=== PATIENT | male | born 1985 | race African-American/Black ===

== ENCOUNTER 2022-06-18 15:44 | Emergency (ER) | payer MEDICAID, OTHER ==
[~2022-06-18] VITALS: Ht 170.2 cm; Wt 78.0 kg
[~2022-06-18 15:44] MED LIST: KEPP500 PO
[2022-06-18 16:15] VITALS: BP 123/70
[2022-06-18] MEDS ORDERED: LEVE1000 MT (19:32)
[2022-06-18] MEDS ORDERED: LACO200T2 MT ×2 (19:32→19:40)
== END 2022-06-18 20:38 | disposition home or self-care (01) ==
LOC: ER 15:44
DX: Z76.0 Encounter for issue of repeat prescription (principal); R56.9 Unspecified convulsions
CPT/HCPCS: 93005; 99283

== ENCOUNTER 2022-07-17 11:30 | Emergency (ER) | payer MEDICAID, OTHER ==
[~2022-07-17] VITALS: Ht 165.1 cm; Wt 54.0 kg
[~2022-07-17 11:30] MED LIST changes: +LACO200T2 MT; +LEVE1000 MT
[2022-07-17 11:48] VITALS: BP 90/72
[2022-07-17] MEDS ORDERED: LEVE1000 MT (12:08)
[2022-07-17] MEDS ORDERED: LACO200T2 MT (12:08)
== END 2022-07-17 12:22 | disposition home or self-care (01) ==
LOC: ER 12:19
DX: R56.9 Unspecified convulsions (principal); Z76.0 Encounter for issue of repeat prescription
CPT/HCPCS: 99281; 99283

== ENCOUNTER 2022-09-17 09:32 | Emergency (ER) | payer MEDICAID, OTHER ==
[~2022-09-17] VITALS: Ht 170.2 cm; Wt 80.0 kg
[2022-09-17 09:36] VITALS: BP 118/78; PULSE 82; RESP 18; TEMP 98.6; O2SAT 100
[2022-09-17] MEDS ORDERED: LACO200T2 MT (09:58)
[2022-09-17] MEDS ORDERED: LEVE1000 MT (09:58)
== END 2022-09-17 10:11 | disposition home or self-care (01) ==
LOC: ER 09:32
DX: Z76.0 Encounter for issue of repeat prescription (principal); R56.9 Unspecified convulsions
CPT/HCPCS: 99283